=== PATIENT | male | born 1965 ===

== ENCOUNTER 2020-05-16 13:34 | Outpatient (CLI) | payer OTHER | END 2020-05-16 13:35 | disposition home or self-care (01) | LOC: WOUND 13:34 | PROVIDERS: ATTEND Surgery | DX: T63.391A Toxic effect of venom of other spider, accidental (unintentional), initial encounter (principal); L97.222 Non-pressure chronic ulcer of left calf with fat layer exposed; L03.116 Cellulitis of left lower limb; I10 Essential (primary) hypertension; Y93.89 Activity, other specified; Y92.89 Other specified places as the place of occurrence of the external cause; Y99.8 Other external cause status | CPT/HCPCS: 11042; G0463; 99204 ==